=== PATIENT | female | born 1995 | race Caucasian/White ===

== ENCOUNTER 2016-07-09 01:09 | Emergency (ER) | payer BC ==
[2016-07-09] MEDS ORDERED: NS 1,000 ML IV ONE (01:12)
--- NOTE | 2016-07-09 01:16 | EDPHY ---
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 Patient tells me that she did Felicita this evening as well as acid. At this time she has no complaints however upon arrival she is alert and orient x4 she has a GCS of 15 it is noted that she has 11 mm dilated equal pupils. Past Medical History:Seizure history from drug use Past Surgical History: no significant surgical history Social History: Endorses doing MDMA are Felicita, endorses doing acid, Family History: Noncontributory ROS REVIEW OF SYSTEMS: A comprehensive 10 point review of systems is otherwise negative aside from elements mentioned in the history of present illness. Exam Constitutional triage nursing summary reviewed, vital signs reviewed, awake/ alert. Eyes normal conjunctivae and sclera, EOMI, PERRLA. HENT normal inspection, atraumatic, moist mucus membranes, no epistaxis, neck supple/ no meningismus, no raccoon eyes. Respiratory clear to auscultation bilaterally, normal breath sounds, no respiratory distress, no wheezing. Cardiovascular rate normal, regular rhythm, no murmur, no edema, distal pulses normal. Gastrointestinal soft, non-tender, no rebound, no guarding, normal bowel sounds, no distension, no pulsatile mass. Genitourinary no CVA tenderness. Musculoskeletal no midline vertebral tenderness, full range of motion, no calf swelling, no tenderness of extremities, no meningismus, good pulses, neurovascularly intact. Skin pink, warm, & dry, no rash, skin atraumatic. Neurologic large pupils 11 mm equal minimally reactive to light, awake, alert and oriented x 3, AAOx3, moves all 4 extremities equally, motor intact, sensory intact, CN II-XII intact, normal cerebellar, normal vision, normal speech. Psychiatric normal mood/affect. Heme/Lymph/Immune no lymphadenopathy. Differential Diagnosis: Includes but is not limited to in a particular order, seizure from drug use, electrolyte abnormality specifically sodium given Felicita, intracranial bleed, dehydration, hyperthermia Medical Decision Making: this patient had an IV established obtain blood work including electrolytes to check her sodium given MDMA ingestion, she will be gently hydrated with IV fluids normal saline, she will have a CT scan of her head without IV contrast to rule out significant intracranial bleed or trauma giving her seizure given that she is on drugs. Most likely cause of seizure is drug intoxication. We will also check her temperature make sure she is not hyperthermic Re-evaluation: EKG interpretation by me on record in [employer] system. Impression time of EKG 1:25 a.m. this is sinus tachycardia rate of 121 otherwise no acute ischemic changes specifically no ST elevation, ST depression. CT scan of the head without IV contrast The results of the study are negative for anything acute The study was read by Dr. Velez I viewed the images myself on the PACS system. 0410: Re-examination; this patient's, cooperative she is alert and oriented, she is now sober. She is requesting discharge. She is now sober. Her drug screen and blood work is reviewed she is positive for cocaine and methamphetamine. I did recommend that she refrain from doing drugs as this is her 2nd ER visit for seizure related to drugs. Source: Patient, EMS - Medical/Surgical History Hx Asthma: No Hx Chronic Respiratory Disease: No Hx Diabetes: No Hx Cardiac Disease: No Hx Renal Disease: No Hx Cirrhosis: No Hx Alcoholism: No Hx HIV/AIDS: No Hx Splenectomy or Spleen Trauma: No Other PMH: denies - Social History Smoking Status: Current every day smoker Constitutional: Initial Vital Signs Temperature (C) 37.0 C 07/09/16 01:10 Heart Rate 133 H 07/09/16 01:10 Respiratory Rate 18 07/09/16 01:10 Blood Pressure 144/99 H 07/09/16 01:10 O2 Sat (%) 96 07/09/16 01:10 O2 Delivery Mode Room Air O2 (L/minute) 2 Allergies/Adverse Reactions: Penicillins Allergy (Verified 04/18/15 01:09) Home Medications: Medication Instructions Recorded Microgestin 07/09/16 Medical Decision Making - Data Points Laboratory Results: Laboratory Results 07/09/16 01:00 07/09/16 01:00 07/09/16 07/09/16 02:10 01:00 WBC 13.57 H 10^3/uL (3.80-9.50) RBC 4.93 10^6/uL (4.18-5.33) Hgb 13.8 g/dL (12.6-16.3) Hct 42.0 % (38.0-47.0) MCV 85.2 fL (81.5-99.8) MCH 28.0 pg (27.9-34.1) MCHC 32.9 g/dL (32.4-36.7) RDW 12.4 % (11.5-15.2) Plt Count 269 10^3/uL (150-400) MPV 10.0 fL (8.7-11.7) Neut % (Auto) 66.4 % (39.3-74.2) Lymph % (Auto) 27.4 % (15.0-45.0) [place] % (Auto) 4.3 L % (4.5-13.0) Eos % (Auto) 0.7 % (0.6-7.6) Baso % (Auto) 0.7 % (0.3-1.7) Nucleat RBC Rel Count 0.0 % (0.0-0.2) Absolute Neuts (auto) 9.02 H 10^3/uL (1.70-6.50) Absolute Lymphs (auto) 3.72 H 10^3/uL (1.00-3.00) Absolute Monos (auto) 0.58 10^3/uL (0.30-0.80) Absolute Eos (auto) 0.09 10^3/uL (0.03-0.40) Absolute Basos (auto) 0.09 10^3/uL (0.02-0.10) Absolute Nucleated RBC 0.00 10^3/uL (0-0.01) Immature Gran % 0.5 % (0.0-1.1) Immature Gran # 0.07 10^3/uL (0.00-0.10) Sodium 139 mEq/L (134-144) Potassium 4.4 mEq/L (3.5-5.2) Chloride 101 mEq/L (97-110) Carbon Dioxide 13 L mEq/l (22-31) Anion Gap 25 mEq/L (8-16) BUN 13 mg/dL (7-23) Creatinine 1.0 mg/dL (0.6-1.0) Estimated GFR > 60 Glucose 159 H mg/dL (70-100) Calcium 9.6 mg/dL (8.5-10.4) Beta HCG, Qual NEGATIVE Salicylates < 1.0 L mg/dL (2.0-20.0) Urine Opiates Screen NEGATIVE (NEGATIVE) Acetaminophen < 10 L mcg/mL (10.0-30.0) Urine Barbiturates NEGATIVE (NEGATIVE) Ur Phencyclidine Scrn NEGATIVE (NEGATIVE) Ur Amphetamine Screen NON-NEGATIVE H (NEGATIVE) U Benzodiazepines Scrn NEGATIVE (NEGATIVE) Urine Cocaine Screen NON-NEGATIVE H (NEGATIVE) U Marijuana (THC) Screen NEGATIVE (NEGATIVE) Ethyl Alcohol < 10 mg/dL (0-10) Medications Given: Discontinued Medications Sodium Chloride (Ns) 1,000 mls @ 0 mls/hr IV ONCE ONE PRN Reason: Wide Open Stop: 07/09/16 01:13 Last Admin: 07/09/16 01:23 Dose: 1,000 mls Departure - Departure Disposition: Home, Routine, Self-Care Clinical Impression: Seizure, Polysubstance abuse MDMA (methylenedioxymethamphetamine) poisoning Qualifiers: Encounter type: initial encounter Injury intent: intentional self-harm Qualifier Code: (T43.622A) Poisoning by amphetamines, intentional self-harm, initial encounter Condition: Good Instructions: Nonepileptic Seizures (ED), Polysubstance Abuse (ED) Additional Instructions: 1. Follow up with your neurologist next week. 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 Do not drive or do anything where you could hurt yourself or others if you were to have a seizure until you are cleared by neurology. 2. Do not use illegal drugs. 3. Return to the emergency department if you develop any new symptoms that concern you. Referrals: Patient,NotPresent [Unknown] - As per Instructions Bashir Chanel MD [Medical Doctor] - As per Instructions
[2016-07-09 01:23] VITALS: TEMP 98.6
[2016-07-09 01:23] LABS: % IMMATURE GRANULYOCYTES 0.5 % (0.0-1.1); ABSOLUTE IMMATURE GRANULOCYTES 0.07 10^3/uL (0.00-0.10); ADD DIFF? NO; ADD MORPH? NO; ADD SCAN? NO; ATYPICAL LYMPHOCYTE FLAG 0 (0-99); FRAGMENT RBC FLAG 0 (0-99); HEMOGLOBIN 13.8 g/dL (12.6-16.3); LEFT SHIFT FLG 0 (0-99); LIPEMIA HEMOLYSIS FLAG 80 (0-99); MEAN CELL HEMOGLOBIN CONCENTR. 32.9 g/dL (32.4-36.7); MEAN CELL VOLUME 85.2 fL (81.5-99.8); PLATELET CLUMPS FLAG 10 (0-99); PLATELET COUNT 269 10^3/uL (150-400); RED BLOOD CELL COUNT 4.93 10^6/uL (4.18-5.33); RED CELL DISTRIBUTION WIDTH 12.4 % (11.5-15.2)
--- NOTE | 2016-07-09 01:27 | CPEKG ---
Heart Rate: 121 RR Interval: 496 P-R Interval: 144 QRSD Interval: 94 QT Interval: 328 QTC Interval: 466 P [place]: 50 QRS [place]: 94 T Wave [place]: -49 EKG Severity - ABNORMAL ECG - EKG Impression: SINUS TACHYCARDIA EKG Impression: BORDERLINE RIGHT AXIS DEVIATION EKG Impression: ABNORMAL T, CONSIDER ISCHEMIA, INFERIOR LEADS Electronically Signed By: Pennie Pompa 09-Jul-2016 21:51:27
[2016-07-09 01:37] LABS: ANION GAP 25 mEq/L (8-16); CALCIUM 9.6 mg/dL (8.5-10.4); CARBON DIOXIDE 13 mEq/l (22-31); CHLORIDE 101 mEq/L (97-110); ETHANOL SERUM < 10 mg/dL (0-10); GLOMERULAR FILTRATION RATE > 60; GLUCOSE 159 mg/dL (70-100); POTASSIUM 4.4 mEq/L (3.5-5.2); SALICYLATE < 1.0 mg/dL (2.0-20.0); SODIUM 139 mEq/L (134-144)
[2016-07-09 04:19] VITALS: BP 138/91; PULSE 98; RESP 18; O2SAT 96
--- NOTE | 2016-07-09 12:07 | CT ---
Noncontrast Head CT Indication: Seizure.. Technique: Standard noncontrast axial CT images of the head were performed. Dose reduction techniq ues were utilized. COMPARISON STUDY: April 18, 2015. Findings: No intracranial hemorrhage, mass effect, swelling, or extraaxial fluid collection. The ve ntricles are normal caliber and midline. The bones appear unremarkable. The paranasal sinuses are clear. Impression: Normal noncontrast CT of the brain. The study was performed as an emergency on-call case and discussed by telephone with Dr. Okeefe at 14 5 hrs. The final interpretation is concordant with the original communication.
== END 2016-07-09 04:21 | disposition home or self-care (01) ==
LOC: EDUNIT#
DX: T43.622A Poisoning by amphetamines, intentional self-harm, initial encounter (principal); G40.909 Epilepsy, unspecified, not intractable, without status epilepticus; F19.10 Other psychoactive substance abuse, uncomplicated; F17.200 Nicotine dependence, unspecified, uncomplicated
CPT/HCPCS: 80305; G0480